=== PATIENT | male | born 1980 | race African-American/Black ===

== ENCOUNTER 2018-08-19 07:29 | Emergency (ER) | payer SELFPAY ==
[~2018-08-19] VITALS: Ht 177.8 cm; Wt 81.6 kg
[2018-08-19 08:03] VITALS: BP 116/86
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
[2018-08-19] MEDS ORDERED: Tetracaine 0.5% Opth 4ml Soln RIGHT EYE ONE (08:15)
[2018-08-19] MEDS ORDERED: Tetracaine 0.5% Opth 4ml Soln LEFT EYE ONE (08:15)
[2018-08-19] MEDS ORDERED: Ammonia Inhalant 0.33mL 1 Amp INH ONE ×2 (09:52→10:00)
[2018-08-19 10:00] VITALS: BP 120/76
== END 2018-08-19 10:00 | disposition home or self-care (01) ==
LOC: EDBD 07:29 → EMR 09:46
DX: T65.893A Toxic effect of other specified substances, assault, initial encounter (principal); H10.213 Acute toxic conjunctivitis, bilateral; Y92.89 Other specified places as the place of occurrence of the external cause
CPT/HCPCS: 99283